=== PATIENT | male | born 1980 | race Two or more races ===

== ENCOUNTER 2024-09-06 20:00 | Emergency (ER) | payer MEDICAID ==
[~2024-09-06] VITALS: Ht 175.3 cm; Wt 72.6 kg
[2024-09-06 20:08] VITALS: O2SAT 99
== END 2024-09-07 00:16 | disposition left against medical advice (07) ==
LOC: ER 20:00
DX: M79.5 Residual foreign body in soft tissue (principal); M79.632 Pain in left forearm; Z59.00 Homelessness unspecified
CPT/HCPCS: 73090; A4606; A4663